=== PATIENT | male | born 1955 | race Caucasian/White ===

== ENCOUNTER → 2021-01-11 | Day surgery (SDC) | payer MEDICARE ==
[~2021-01-11] VITALS: Ht 167.6 cm; Wt 111.8 kg
[~2021-01-11] MED LIST: ALLOPURINOL100 MG PO; ALLOPURINOL300 MG PO; ATORVASTATIN CA40 MG PO; CELEBREX200 MG PO; DIOVAN320 MG PO; NORCO 5-325 TA1 EACH PO; NORVASC5 MG PO; ONDANSETRON ODT8 MG PO; TENORMIN25 MG PO
[2021-01-11 09:19] LABS: HCT 45.8 % (42.0-52.0); HGB 15.3 g/dl (13.2-18.0); MCH 30.4 pg (25.0-31.0); MCHC 33.4 g/dL (32.0-36.0); MCV 91.1 fL (78.0-100.0); RBC 5.03 M/uL (4.70-6.00); RDW 13.6 % (11.5-14.0); WBC 9.3 K/uL (4.0-10.5)
[2021-01-11 09:38] LABS: ALBUMIN 3.7 g/dL (3.4-5.0); BILIRUBIN - TOTAL 0.4 mg/dL (0.2-1.0); BUN/CREAT RATIO (CALC) 22.4 RATIO; CREATININE 0.76 mg/dL (0.67-1.17); GLOBULIN (CALCULATION) 4.1 g/dL; POTASSIUM 4.4 mmol/L (3.5-5.1); TOTAL PROTEIN 7.8 g/dL (6.4-8.2)
== END | disposition home or self-care (01) ==
LOC: FAS 08:41
PROVIDERS: Surgery
DX: D17.1 Benign lipomatous neoplasm of skin and subcutaneous tissue of trunk (principal); C44.519 Basal cell carcinoma of skin of other part of trunk; M10.9 Gout, unspecified; M19.90 Unspecified osteoarthritis, unspecified site; I10 Essential (primary) hypertension; E78.5 Hyperlipidemia, unspecified; E78.00 Pure hypercholesterolemia, unspecified; J45.909 Unspecified asthma, uncomplicated; Z87.891 Personal history of nicotine dependence; Z79.899 Other long term (current) drug therapy; Z88.0 Allergy status to penicillin
CPT/HCPCS: 36415; 80053; 88305; 93005; J2405; J2704; J3010; J7120

== ENCOUNTER 2021-04-05 14:42 | Inpatient (IN) | payer MEDICARE ==
[~2021-04-05] VITALS: Ht 167.6 cm; Wt 106.7 kg
[2021-04-05 17:10] LABS: BASOPHIL 0.1 % (0-2); EOSINOPHIL 0.1 % (0-7); HCT 47.4 % (42.0-52.0); HGB 16.1 g/dl (13.2-18.0); LYMPHOCYTE 4.1 % (15-48); MCH 29.6 pg (25.0-31.0); MCV 87.1 fL (78.0-100.0); MPV 10.9 fL (6.0-9.5); NEUTROPHIL 89.2 % (41-80); NRBC 0.2; PLT 307 K/uL (150-400); RBC 5.44 M/uL (4.70-6.00); RDW 13.2 % (11.5-14.0); WBC 14.9 K/uL (4.0-10.5)
[2021-04-05 18:04] LABS: PRO-BNP 1590 pg/mL (<125)
[2021-04-05 18:51] LABS: ALBUMIN 3.4 g/dL (3.4-5.0); BILIRUBIN - TOTAL 0.7 mg/dL (0.2-1.0); BUN/CREAT RATIO (CALC) 22.1 RATIO; CREATININE 1.36 mg/dL (0.67-1.17); GLOBULIN (CALCULATION) 4.7 g/dL; POTASSIUM 3.9 mmol/L (3.5-5.1); TOTAL PROTEIN 8.1 g/dL (6.4-8.2)
[2021-04-05 22:07] LABS: C-REACTIVE PROTEIN 10.4 mg/dL (<=0.90)
[2021-04-05] MEDS ORDERED: ALLOPURINOL300 MG PO (23:09)
[2021-04-05] MEDS ORDERED: HCTZ25 MG PO (23:10)
[2021-04-06 06:23] LABS: BASOPHIL 0.1 % (0-2); EOSINOPHIL 0 % (0-7); HCT 46.4 % (42.0-52.0); HGB 15.6 g/dl (13.2-18.0); LYMPHOCYTE 2.8 % (15-48); MCH 29.9 pg (25.0-31.0); MCHC 33.6 g/dL (32.0-36.0); MCV 88.9 fL (78.0-100.0); MPV 10.6 fL (6.0-9.5); NEUTROPHIL 93.2 % (41-80); NRBC 0.1; PLT 281 K/uL (150-400); RBC 5.22 M/uL (4.70-6.00); RDW 13.3 % (11.5-14.0)
[2021-04-06 06:26] LABS: WBC 21.1 K/uL (4.0-10.5)
[2021-04-06 06:39] LABS: BUN/CREAT RATIO (CALC) 28.2 RATIO; CREATININE 1.17 mg/dL (0.67-1.17); POTASSIUM 4.2 mmol/L (3.5-5.1); URIC ACID 4.9 mg/dL (3.5-7.2)
--- NOTE | 2021-04-06 15:09 | NUR ---
Mr. South lives at home with his spouse. He has a cane he uses at times. Ms. South would like 02 ordered from [employer] if neded at discharge.
[2021-04-06 23:04] LABS: BASOPHIL 0.1 % (0-2); EOSINOPHIL 0 % (0-7); HCT 45.9 % (42.0-52.0); HGB 15.5 g/dl (13.2-18.0); LYMPHOCYTE 4.6 % (15-48); MCH 29.9 pg (25.0-31.0); MCHC 33.8 g/dL (32.0-36.0); MCV 88.4 fL (78.0-100.0); MONOCYTE 4.8 % (0-12); MPV 10.6 fL (6.0-9.5); NEUTROPHIL 88.9 % (41-80); NRBC 0; PLT 329 K/uL (150-400); RBC 5.19 M/uL (4.70-6.00); RDW 13.4 % (11.5-14.0); WBC 19.4 K/uL (4.0-10.5)
[2021-04-06 23:21] LABS: INR 1.17 (0.9-1.2); PROTHROMBIN TIME 14.3 SECONDS (11.8-13.4); PTT 31.1 SECONDS (24.4-34.7)
--- NOTE | 2021-04-07 03:40 | NUR ---
EMS HERE TO TRANSPORT PATIENT TO [facility] IN [place] FOR EMERGENT VASCULAR SURGICAL CONSULT. 3L O2 PER NASAL CANNULA AND HEPARIN DRIP INFUSING. REPORT GIVEN TO JANUSZ ON 3E. SPOUSE NOTIFIED
== END 2021-04-07 03:42 | disposition other institution (70) | DRG 177 ==
LOC: FER 14:42 → FMS 21:07
PROVIDERS: Nurse Practitioner; Nurse Practitioner Family; ADMIT Allergy & Immunology Allergy
PROC: 8E0ZXY6 Isolation (ICD-10-PCS; principal; 2021-04-06)
PROC: XW033E5 Introduction of Remdesivir Anti-infective into Peripheral Vein, Percutaneous Approach, New Technology Group 5 (ICD-10-PCS; 2021-04-06)
PROC: XW0DXM6 Introduction of Baricitinib into Mouth and Pharynx, External Approach, New Technology Group 6 (ICD-10-PCS; 2021-04-06)
DX: U07.1 COVID-19 (principal); J12.82 Pneumonia due to coronavirus disease 2019; J96.01 Acute respiratory failure with hypoxia; I74.3 Embolism and thrombosis of arteries of the lower extremities; I74.5 Embolism and thrombosis of iliac artery; I74.09 Other arterial embolism and thrombosis of abdominal aorta; I10 Essential (primary) hypertension; M10.9 Gout, unspecified; E78.5 Hyperlipidemia, unspecified; Z90.89 Acquired absence of other organs; Z90.49 Acquired absence of other specified parts of digestive tract; Z98.890 Other specified postprocedural states; Z80.0 Family history of malignant neoplasm of digestive organs; Z82.49 Family history of ischemic heart disease and other diseases of the circulatory system; Z87.891 Personal history of nicotine dependence; Z88.0 Allergy status to penicillin
CPT/HCPCS: 36415; 36600; 71045; 71275; 75635; 80048; 80053; 82728; 82803; 83880; 84484; 84550; 85025; 85379; 85610; 85730; 86140; 93971; 94010; 94640; 94667; C9399; J1100; J1170; J1644; J1650; J1885; J2270; J7030; J7050; Q9967; U0002